=== PATIENT | female | born 1955 | race Caucasian/White ===

== ENCOUNTER 2022-08-12 07:21 | Day surgery (SDC) | payer MEDICARE, MEDICAID ==
[2022-08-12] VITALS (10 sets, daily range): BP systolic 102–142; BP diastolic 49–75
[~2022-08-12] VITALS: Ht 152.4 cm; Wt 102.9 kg
[~2022-08-12 07:21] MED LIST: BACL10TA2 PO; FEXO-236 PO; FLUT16SP26 BOTHNARES; GABA-530 PO; GUAI-1078 PO; LISI5TAB22 PO; MAGN200T8 PO; MULT-1085 PO; PANT20TA18 PO; SODI1TAB2 PO; THIA50TA10 PO
[2022-08-12] MEDS ORDERED: LIDOcaine 1% 30ml preserv. free vial SQ STA (07:26)
[2022-08-12] MEDS ORDERED: albumin 25% 100mL bottle x 1 IV PRN (08:00)
[2022-08-12] MEDS ORDERED: THIA100T66 PO (08:06)
[2022-08-12] MEDS ORDERED: ACET325T55 PO (08:06)
[2022-08-12] MEDS ORDERED: FURO40TA4 PO (08:06)
[2022-08-12] MEDS ORDERED: MAGN200T PO (08:06)
[2022-08-12] MEDS ORDERED: POTA-82 PO (08:06)
[2022-08-12] MEDS ORDERED: CALC-97 PO (08:06)
[2022-08-12] MEDS ORDERED: GUAI-425 PO (08:06)
[2022-08-12] MEDS ORDERED: SPIR25TA5 PO (08:06)
[2022-08-12] MEDS ORDERED: MULT-1249 PO (08:06)
[2022-08-12] MEDS ORDERED: CETI10TA14 PO (08:06)
[2022-08-12] MEDS ORDERED: FERR325T29 PO (08:06)
[2022-08-12] MEDS ORDERED: FOLI0.4T6 PO (08:06)
[2022-08-12 10:46] LABS: GLUCOSE,BODY FLUID 106 MG/DL; LDH,BODY FLUID 33 U/L
[2022-08-12 11:09] LABS: BF RBC COUNT 38 /CU MM; BF WBC COUNT 83 /CU MM (0-1000); BFAPPEAR CLOUDY; BFCOLOR YELLOW; BFVOLUME 60 ML; LYMPHOCYTES,BODY FLUID 72 %; MONOCYTES,BODY FLUID 11 %; NEUTROPHILS,BODY FLUID 17 %
[2022-08-12 11:10] LABS: BF MESOTHELIAL CELLS FEW
[2022-08-12 11:13] LABS: TOTAL PROTEIN,BODY FLUID < 2.0 G/DL
== END 2022-08-12 10:20 | disposition home or self-care (01) ==
LOC: SSTAY O 07:21
PROVIDERS: ATTEND Radiology Vascular & Interventional Radiology
DX: K70.31 Alcoholic cirrhosis of liver with ascites (principal); K21.9 Gastro-esophageal reflux disease without esophagitis; G89.29 Other chronic pain; E88.81 Metabolic syndrome and other insulin resistance; F10.20 Alcohol dependence, uncomplicated; E87.1 Hypo-osmolality and hyponatremia; I10 Essential (primary) hypertension; F41.9 Anxiety disorder, unspecified; F31.9 Bipolar disorder, unspecified; H54.8 Legal blindness, as defined in USA; Z85.3 Personal history of malignant neoplasm of breast; Z98.51 Tubal ligation status; Z98.890 Other specified postprocedural states; Z88.2 Allergy status to sulfonamides; Z88.8 Allergy status to other drugs, medicaments and biological substances; Z79.899 Other long term (current) drug therapy
CPT/HCPCS: 36415; 49083; 82945; 83615; 84157; 87070; 89051; C1729; P9047; A6258; A6449

== ENCOUNTER 2022-09-06 07:08 | Day surgery (SDC) | payer MEDICARE, MEDICAID ==
[~2022-09-06] VITALS: Ht 154.9 cm; Wt 102.9 kg
[2022-09-06] VITALS (7 sets, daily range): BP systolic 105–115; BP diastolic 47–77
[~2022-09-06 07:08] MED LIST changes: +ACET325T55 PO; +CALC-97 PO; +CETI10TA14 PO; +FERR325T29 PO; -FEXO-236 PO; +FOLI0.4T6 PO; +FURO40TA4 PO; -GUAI-1078 PO; -MAGN200T8 PO; -MULT-1085 PO; +MULT-1249 PO; +POTA-82 PO; +SODI100035 PO; -SODI1TAB2 PO; +SPIR25TA PO; +THIA100T66 PO; -THIA50TA10 PO
[2022-09-06] MEDS ORDERED: LIDOcaine 1% 30ml preserv. free vial SQ STA (07:15)
[2022-09-06] MEDS ORDERED: potassium (07:26)
[2022-09-06] MEDS ORDERED: SPIR25TA5 PO (07:28)
[2022-09-06] MEDS ORDERED: SODI1TAB2 PO (07:28)
[2022-09-06] MEDS ORDERED: POTA-207 PO (07:28)
[2022-09-06] MEDS ORDERED: albumin 25% 100mL bottle x 1 IV PRN (07:30)
== END 2022-09-06 09:45 | disposition home or self-care (01) ==
LOC: SSTAY O 07:08
PROVIDERS: ATTEND Radiology Vascular & Interventional Radiology
DX: K70.31 Alcoholic cirrhosis of liver with ascites (principal); K21.9 Gastro-esophageal reflux disease without esophagitis; G89.29 Other chronic pain; M48.00 Spinal stenosis, site unspecified; E88.81 Metabolic syndrome and other insulin resistance; E87.1 Hypo-osmolality and hyponatremia; I10 Essential (primary) hypertension; F41.9 Anxiety disorder, unspecified; H54.8 Legal blindness, as defined in USA; F31.9 Bipolar disorder, unspecified; Z98.51 Tubal ligation status; Z98.890 Other specified postprocedural states; Z85.3 Personal history of malignant neoplasm of breast; F10.21 Alcohol dependence, in remission; Z79.899 Other long term (current) drug therapy
CPT/HCPCS: 49083; J3490; P9047; A6258; A6449

== ENCOUNTER 2022-09-23 07:24 | Day surgery (SDC) | payer MEDICARE, MEDICAID ==
[~2022-09-23] VITALS: Ht 154.9 cm; Wt 103.2 kg
[~2022-09-23 07:24] MED LIST changes: +POTA-207 PO; -POTA-82 PO; -SODI100035 PO; +SODI1TAB2 PO; +SPIR25TA5 PO
[2022-09-23] MEDS ORDERED: LIDOcaine 1% 30ml preserv. free vial SQ STA (07:44)
[2022-09-23] MEDS ORDERED: albumin 25% 100mL bottle x 1 IV PRN (07:55)
[2022-09-23 08:00] VITALS: BP 113/66
[2022-09-23 09:00] VITALS: BP 97/51
[2022-09-23 09:15] VITALS: BP 102/56
[2022-09-23 09:30] VITALS: BP 107/55
[2022-09-23 09:45] VITALS: BP 109/56
== END 2022-09-23 10:00 | disposition home or self-care (01) ==
LOC: SSTAY O 07:24
PROVIDERS: ATTEND Radiology Diagnostic Radiology
DX: K70.31 Alcoholic cirrhosis of liver with ascites (principal); K21.9 Gastro-esophageal reflux disease without esophagitis; G89.29 Other chronic pain; E88.81 Metabolic syndrome and other insulin resistance; M48.00 Spinal stenosis, site unspecified; F10.20 Alcohol dependence, uncomplicated; E87.1 Hypo-osmolality and hyponatremia; I10 Essential (primary) hypertension; F41.9 Anxiety disorder, unspecified; F31.9 Bipolar disorder, unspecified; H54.8 Legal blindness, as defined in USA; Z98.51 Tubal ligation status; Z85.3 Personal history of malignant neoplasm of breast; Z98.890 Other specified postprocedural states; Z88.2 Allergy status to sulfonamides; Z88.8 Allergy status to other drugs, medicaments and biological substances; Z79.899 Other long term (current) drug therapy
CPT/HCPCS: 49083; J3490; P9047

== ENCOUNTER 2022-10-01 21:57 | Emergency (ER) | payer MEDICARE, MEDICAID ==
[~2022-10-01] VITALS: Ht 154.9 cm; Wt 96.4 kg
[~2022-10-01 21:57] MED LIST changes: -ACET325T55 PO; -GABA-530 PO; -SPIR25TA5 PO
[2022-10-01] MEDS ORDERED: normal saline 1000ml 1,000 ML IV ONE (22:35)
[2022-10-02 00:26] LABS: BASOPHILS % (AUTO) 0.6 % (0-1); EOSINOPHILS % (AUTO) 0.2 % (0-6); HEMOGLOBIN 7.1 g/dl (12.0-16.0); LYMPHOCYTES # (AUTO) 0.9 X10'3 (1.1-4.8); MEAN CORPUSCULAR HEMOGLOBIN 39.8 PG (27.0-31.0); MEAN CORPUSCULAR VOLUME 117.1 FL (78-98); MEAN PLATELET VOLUME 7.1 FL (7.4-10.4); MONOCYTES # (AUTO) 0.6 X10'3 (0-0.9); MONOCYTES % (AUTO) 13.3 % (2-12); NEUTROPHILS % (AUTO) 65.9 % (42-75); PLATELET COUNT 125 X10'3 (140-440); RED BLOOD COUNT 1.79 X10'6 (4.20-5.60); RED CELL DISTRIBUTION WIDTH 18.5 % (11.5-14.5); WHITE BLOOD COUNT 4.5 X10'3 (4.5-11.0)
[2022-10-02 00:28] LABS: HEMATOCRIT 20.9 % (35.0-45.0)
[2022-10-02 00:40] LABS: ALANINE AMINOTRANSFERASE 18 U/L (12-78); ALKALINE PHOSPHATASE 112 IU/L (46-116); ANION GAP 5 (8-16); ASPARTATE AMINO TRANSFERASE 44 U/L (10-37); BILIRUBIN,TOTAL 5.1 MG/DL (0.1-1.0); BLOOD UREA NITROGEN 28 MG/DL (7-18); BUN/CREATININE RATIO 25.5 (10.0-20.0); CALCIUM 8.3 MG/DL (8.5-10.1); CHLORIDE 100 MMOL/L (99-107); GLUCOSE 110 MG/DL (70-104); POTASSIUM 5.9 MMOL/L (3.5-5.1); SODIUM 128 MMOL/L (135-145); TOTAL CARBON DIOXIDE 22.9 MMOL/L (24-32); eGFR 50 ML/MIN
[2022-10-02 00:41] LABS: ACANTHOCYTES FEW; ANISOCYTOSIS 2+; PLATELET ESTIMATE DECREASED; TARGET CELLS FEW
[2022-10-02 00:42] LABS: BURR CELLS FEW; ELLIPTOCYTES FEW
[2022-10-02 00:43] LABS: HYPOCHROMASIA 1+
[2022-10-02 00:49] LABS: MAGNESIUM 2.1 MG/DL (1.5-2.4)
[2022-10-02 00:55] LABS: ALBUMIN/GLOBULIN RATIO 0.5 (1.1-1.5); PHOSPHORUS 4.1 MG/DL (2.3-4.5); TOTAL PROTEIN 5.9 G/DL (6.4-8.2)
[2022-10-02] MEDS ORDERED: loperamide 2mg capsule PO ONE (01:40)
[2022-10-02] MEDS ORDERED: LOPE2CAP PO (01:42)
[2022-10-02 02:01] VITALS: BP 109/72
[2022-10-04] MEDS ORDERED: SODI100035 PO (13:01)
[2022-10-04] MEDS ORDERED: FURO-149 PO (13:01)
[2022-10-04] MEDS ORDERED: SPIR25TA5 PO (13:01)
[2022-10-04] MEDS ORDERED: FERR-106 PO (13:01)
[2022-10-04] MEDS ORDERED: GABA-530 PO (13:01)
[2022-10-04] MEDS ORDERED: DOCU-345 PO (13:01)
== END 2022-10-02 02:03 | disposition home or self-care (01) ==
LOC: ER 21:58
DX: R53.1 Weakness (principal); R19.7 Diarrhea, unspecified; R50.9 Fever, unspecified; K72.90 Hepatic failure, unspecified without coma; K21.9 Gastro-esophageal reflux disease without esophagitis; F31.9 Bipolar disorder, unspecified; Z88.2 Allergy status to sulfonamides
CPT/HCPCS: 93005; 96360; 99285; J7030; 36415; 71045; 74176; 80053; 82140; 83605; 83735; 84100; 84145; 84443; 85008; 85025; 87040; 87502; 87503; 87635; C9803